=== PATIENT | male | born 1940 | race Caucasian/White ===

== ENCOUNTER 2022-10-21 15:26 | Inpatient (IN) | payer MEDICARE ==
[~2022-10-21] VITALS: Ht 180.3 cm; Wt 121.3 kg
[2022-10-21] MEDS ORDERED: MEMA10 PO (18:56)
[2022-10-21] MEDS ORDERED: HYDCHL25 PO (18:56)
[2022-10-21] MEDS ORDERED: FENO145 PO (18:56)
[2022-10-21] MEDS ORDERED: DONEPEZIL HCL10 MG PO (18:57)
[2022-10-21] MEDS ORDERED: LISI20 PO (18:57)
[2022-10-21 20:00] LABS: Prostate Specific Antigen 0.043 ng/mL (0.000-4.000)
[2022-10-21 20:38] VITALS: BP 152/68
--- NOTE | 2022-10-21 21:00 | NUR ---
ARRIVAL TO [facility] PT ARRIVED TO PCU AT APPROXIMATELY 2039. PT SBA TRANSFER FROM ER [facility] TO HOSPITAL BED. SON AT BEDSIDE. PT A&O TO SELF, PERSON, AND PLACE, THOUGH DOES NOT REMEMBER WHY HE IS HERE OR WHY HE HAS TO STAFF. 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 SpO2> 92% 2L VIA NC, DENIES SOB. ORIENTED PT TO CALL LIGHT/UNIT TO THIS RN's BEST ABLITIY, BED IN LOWEST POSITION AND BED ALARM ON.
[2022-10-21 23:57] VITALS: BP 155/72
[2022-10-22 03:26] VITALS: BP 120/94
[2022-10-22 04:17] LABS: BASOPHILS ABSOLUTE AUTO 0.06 K/mm3 (0.00-0.23); BASOPHILS PERCENT AUTO 1 % (0-2); EOSINOPHILS ABSOLUTE AUTO 0.22 K/mm3 (0.00-0.68); EOSINOPHILS PERCENT AUTO 2 % (0-6); Hematocrit 34.3 % (37.0-53.0); Hemoglobin 11.5 g/dL (13.5-17.5); IMMATURE GRAN ABSOLUTE AUTO 0.06 K/mm3 (0.00-0.10); IMMATURE GRAN PERCENT AUTO 1 % (0-1); LYMPHOCYTES ABSOLUTE AUTO 1.19 K/mm3 (0.84-5.20); LYMPHOCYTES PERCENT AUTO 9 % (21-46); MONOCYTES ABSOLUTE AUTO 1.24 K/mm3 (0.16-1.47); MONOCYTES PERCENT AUTO 10 % (4-13); Mean Corpuscular HGB 31.3 pg (26.0-34.0); Mean Corpuscular HGB Conc 33.5 g/dL (31.5-36.5); Mean Corpuscular Volume 93 fL (80-100); Mean Platelet Volume 10.3 fL (9.1-12.4); NEUTROPHILS ABSOLUTE AUTO 10.23 K/mm3 (1.96-9.15); NEUTROPHILS PERCENT AUTO 79 % (41-73); Platelet Count 221 K/mm3 (150-400); RDW Coefficient Variation 12.8 % (11.7-14.2); RDW Standard Deviation 44.1 fL (35.1-46.3); Red Blood Cell Count 3.68 M/mm3 (4.30-5.90)
[2022-10-22 04:51] LABS: Bun/Creatinine Ratio 17.6 (12.0-20.0); Calcium, Blood 8.8 mg/dL (8.5-10.1); Creatinine, Blood 1.02 mg/dL (0.60-1.20); Potassium, Blood 3.4 mmol/L (3.5-5.5)
--- NOTE | 2022-10-22 04:58 | NUR ---
SHIFT SUMMARY SEE PREVIOUS NOTE. A&O TO SELF, PERSON, AND PLACE, THOUGH DOES NOT REMEMBER WHY HE IS HERE OR WHY HE HAS TO STAFF. 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 SpO2> 92% 2L O2 AT REST, 4L O2 WITH ACTIVITY. PT REPORTS MILD SOB WITH ACTIVITY. PT CONTINENT OF URINE, SBA TO [facility] D/T LINES, NO BM THIS SHIFT. NO OTHER EVENTS, WILL REPORT TO ONCOMING RN.
[2022-10-22 07:43] VITALS: BP 143/72
--- NOTE | 2022-10-22 10:22 | NUR ---
ASSUMED CARE OF PT AT 0700. PT AWAKE, ALERT AND PLEASANTLY CONFUSED. SAGAR COMPLETED THIS AM. DR CONROY CHANGED PT STATUS TO MED NO TELE, REPORT CALLED TO STUART MARTÍNEZ. PT TO BE TRANSFERRED TO ROOM 330 WITH ALL BELONGINGS. FAMILY AT BEDSIDE NOTIFIED OF TRANSFER.
[2022-10-22 10:39] VITALS: BP 148/82
[2022-10-22 14:41] VITALS: BP 139/77
--- NOTE | 2022-10-22 15:43 | NUR ---
SHIFT SUMMARY Patient transferred from PCU. AOx1-2, pleasant & directable. Bed alarm activated and audible for safety. Does not call for assistance. 2lpm O2 to maintain sats, vitals stable. Plan is to remain in hospital over night, expected discharge tomorrow. Will continue plan of care.
--- NOTE | 2022-10-22 17:41 | NUR ---
PATIENT UP TO RESTROOM AND HAD A SMALL AMOUNT OF RECTAL BLEEDING. DR CONROY NOTIFIED AND XARELTO DISCONTINUED. CBC ORDERED AND INSTRUCTED TO CALL IF BLEEDING DOESN'T STOP.
[2022-10-22 17:59] LABS: BASOPHILS ABSOLUTE AUTO 0.05 K/mm3 (0.00-0.23); BASOPHILS PERCENT AUTO 0 % (0-2); EOSINOPHILS ABSOLUTE AUTO 0.17 K/mm3 (0.00-0.68); EOSINOPHILS PERCENT AUTO 1 % (0-6); Hemoglobin 12.8 g/dL (13.5-17.5); IMMATURE GRAN ABSOLUTE AUTO 0.05 K/mm3 (0.00-0.10); IMMATURE GRAN PERCENT AUTO 0 % (0-1); LYMPHOCYTES ABSOLUTE AUTO 1.45 K/mm3 (0.84-5.20); LYMPHOCYTES PERCENT AUTO 10 % (21-46); MONOCYTES ABSOLUTE AUTO 1.17 K/mm3 (0.16-1.47); MONOCYTES PERCENT AUTO 8 % (4-13); Mean Corpuscular HGB 31.7 pg (26.0-34.0); Mean Corpuscular HGB Conc 33.7 g/dL (31.5-36.5); Mean Corpuscular Volume 94 fL (80-100); Mean Platelet Volume 10.1 fL (9.1-12.4); NEUTROPHILS ABSOLUTE AUTO 12.13 K/mm3 (1.96-9.15); NEUTROPHILS PERCENT AUTO 81 % (41-73); Platelet Count 269 K/mm3 (150-400); RDW Coefficient Variation 12.7 % (11.7-14.2); RDW Standard Deviation 43.8 fL (35.1-46.3); Red Blood Cell Count 4.04 M/mm3 (4.30-5.90); White Blood Cell Count 15.02 K/mm3 (4.00-11.30)
[2022-10-22 19:10] VITALS: BP 145/72
--- NOTE | 2022-10-22 22:54 | NUR ---
MULTIPLE ATTEMPTS TO GET OOB, ON MECHANICAL OBS. CALL LIGHT IN REACH. DOES NOT REDIRECT WELL. CALL PLACED TO MD CAST SHELL GRINDER. SLEEP MED ORDERED. SEE MAR FOR DETAILS
--- NOTE | 2022-10-22 23:51 | NUR ---
START OF SHIFT THIS STUDENT NURSE ASSUMED CARE OF PT AT 1900 UNDER THE OBSERVATION OF PAOLA CONTRERAS. DAYSHIFT NURSE VERBALIZED RECTAL BLEEDING AND RECOMMENDED HOLDING XAERELTO FOR EVENING DOSE PER DR REQUEST. MARTELL. PT ORIENTED TO SELF. PT WBC ELEVATED AT 15.02, CHARGE NURSE KELSEY ALERTED. NO TEMP, NO S/S OF INFECTION. PT LEFT IN POSITION OF COMFORT AND SAFETY WITH BED LOCKED AND IN LOW POSITION, THREE BED RAILS RAISED, NONSKID SOCKS IN PLACE, BED ALARM ENABLED, CALL LIGHT WITHIN REACH, AND CONTINUOUS EXTERNAL CAMERA MONITORING.
[2022-10-23 04:22] VITALS: BP 147/74
--- NOTE | 2022-10-23 04:24 | NUR ---
SHIFT SUMMARY PT CONFUSED, ORIENTED TO SELF. TRIES TO EXIT BED CLAIMING HE NEEDS TO FIND HIS OR HIS CHILDREN. ABLE TO BE REDIRECTED BY STAFF. TRAZODONE ADMINISTERED TO ASSIST WITH SLEEP. INTERVENTION WAS NOT SUCCESSFUL. PT RESTLESS THROUGH SHIFT. VSS, BP ELEVATED WITHOUT SYMPTOMS. PT'S PE ADDRESSED THROUGH FALL PREVENTION MEASURES, XARELTO HELD PER DR VERBALIZATION DUE TO RECTAL BLEEDING. PT REMAINS IN A POSITION OF SAFETY WITH 3 BED RAILS RAISED, BED LOCKED AND IN LOW POSITION, CALL LIGHT WITHIN REACH, ROOM FREE OF DEBRIS, BED ALARM ACTIVATED, AND CAMERA MONITORING IN ROOM.
--- NOTE | 2022-10-23 05:22 | NUR ---
I HAVE OBSERVED/ASSISTED STUDENT NURSE AND HAVE READ HER CHARTING. I ALIDA WITH THE ABOVE
[2022-10-23 07:23] VITALS: BP 134/71
[2022-10-23 08:05] LABS: Hematocrit 36.1 % (37.0-53.0); Hemoglobin 12.4 g/dL (13.5-17.5)
[2022-10-23 08:24] LABS: Bun/Creatinine Ratio 22.6 (12.0-20.0); Calcium, Blood 9.5 mg/dL (8.5-10.1); Creatinine, Blood 1.06 mg/dL (0.60-1.20); Potassium, Blood 3.8 mmol/L (3.5-5.5)
[2022-10-23 14:47] VITALS: BP 112/50
--- NOTE | 2022-10-23 17:08 | NUR ---
SHIFT SUMMARY: PT CONFUSED AND ALERT TO SELF AND FAMILY. BED AND CHAIR ALARM IN PLACE. PT IMPULSIVE AND FREQUENTLY OUT OF BED OR CHAIR. PT REPORTS NOT KNOWING WHERE HE IS GOING OR TRYING TO ACCOMPLISH, REDIRECTABLE TO BED OR CHAIR. PT UTILIZING SUPPLEMENTAL OXYGEN AT 4L/MIN VIA NC. PT TOOK ALL SCHEDULE MEDICATION WITHOUT DIFFICULTY. SON(S) AT BEDSIDE IN THE MORNING HOURS. XARALTO ADMINISTERED, NO REPORTS OF RECTAL BLEEDING.
--- NOTE | 2022-10-23 17:25 | NUR ---
NURSE NOTE THIS RN HAS READ AND AGREED WITH NURSING STUDENTS ASSESSMENT AND SHIFT SUMMARY AND CHARTING.
[2022-10-23 18:13] VITALS: BP 131/66
[2022-10-23 20:29] VITALS: BP 121/74
--- NOTE | 2022-10-23 22:54 | NUR ---
START OF SHIFT THIS STUDENT NURSE ASSUMED CARE OF PT AT 1900 UNDER THE OBSERVATION OF NURSE PAOLA CONTRERAS. PT FAMILY IN ROOM. PT RESTING IN BED. VSS. PT ORIENTED TO SELF AND PERSON. HS MEDICATION ADMINISTERED. PT LEFT IN A POSITION OF SAFETY AND COMFORT WITH BED LOCKED AND IN LOW POSITION, ROOM FREE OF DEBRIS, BED ALARM ENABLED, TWO BED RAILS UP, AND CALL LIGHT WITHIN REACH.
[2022-10-24 03:56] VITALS: BP 125/70
--- NOTE | 2022-10-24 04:39 | NUR ---
SHIFT SUMMARY PT RESTED THROUGH THE NIGHT. PT HAD EXTRA LARGE BM AT AROUND 0420, NO SIGNS OF BLOODY STOOLS. IV PATENT. VSS. PT ORIENTED TO SELF AND SURROUNDINGS. PT PLEASANTLY CONFUSED. PT SAT IN LOW 80S PRIOR TO WAKING DUE TO BREATHING FROM MOUTH, RETURNED TO NORMAL LIMITS AFTER WAKING UP. PT REMAINS IN A POSITION OF COMFORT AND SAFETY.
--- NOTE | 2022-10-24 05:15 | NUR ---
I HAVE OSERVED STUDENT NURSE ASSESSMENTS/CARE AND HER DOCUENTATION OF SUCH. I AGREE WITH THE ABOVE
[2022-10-24 07:16] VITALS: BP 140/71
[2022-10-24] MEDS ORDERED: XARELTO20 MG PO ×2 (14:30→14:31)
--- NOTE | 2022-10-24 16:08 | NUR ---
NOTES/DISCHARGE SUMMARY: PATIENT ALERT AND ORIENTED TO SELF, PLACE AND PERSON. CONFUSED AT TIMES. PLEASANT AND COOPERATIVE c CARE. DENIES CP/PRESSURE, SOB AND GENERALIZED PAIN. ON TELE, SR/ST HR RANGES IN THE 90'S-130'S c BBB AND OCCASIONAL PVC PER GENETICS PHYSICIAN. PATIENT ON O2 2L VIA NC c SPO2 ABOVE 90%. PATIENT HAD HOME O2 EVAL. RT RECOMMENDED 3L OF O2 VIA NC c ACTIVITIES. PATIENT AMBULATES TO BATHROOM AND BACK IN BED c SBA. EATING AND DRINKING WELL. RECEIVED SCHEDULED MEDS PER EMAR. VITAL SIGNS REVIEWED. PIV TO RAC DC'D. PORTABLE O2 DELIVERED IN ROOM BY [facility] . PATIENT DISCHARGE HOME. DISCHARGE INSTRUCTION PACKET GIVEN TO PATIENT. EDUCATE PATIENT AND SPOUSE REGARDING ADMITTING DX, S/S, TX, HOME O2 AND NEW PRESCRIBED MEDICATION. PATIENT AND SPOUSE STATED UNDERSTANDING AND NO FURTHER QUESTION AT THIS TIME. RX WAS FAXED TO SPOUSE AND PATIENT PREFERRED PHARMACY ([facility]). ALL PATIENT PERSONAL BELONGINGS WERE SENT HOME c THE PATIENT. PATIENT LEFT THE ROOM AT AROUND 1530. PATIENT TRANSPORTED VIA WHEELCHAIR BY BUSINESS DEVELOPMENT ENGINEER STAFF, AGUSTIN MCKEON TO PATIENT ENTRANCE.
== END 2022-10-24 15:27 | disposition home or self-care (01) | DRG 175 ==
LOC: ER 15:26 → ERHOLD 19:53 → PCU 19:53 → MEDS 10-22 10:29 → ENPENDDIS 10-24 11:07 → MEDS 10-24 15:27
PROVIDERS: Internal Medicine; Nurse Practitioner Acute Care; ADMIT Student in an Organized Health Care Education/Training Program
DX: I26.99 Other pulmonary embolism without acute cor pulmonale (principal); J96.01 Acute respiratory failure with hypoxia; K62.5 Hemorrhage of anus and rectum; J44.9 Chronic obstructive pulmonary disease, unspecified; G30.9 Alzheimer's disease, unspecified; F02.80 Dementia in other diseases classified elsewhere, unspecified severity, without behavioral disturbance, psychotic disturbance, mood disturbance, and anxiety; I10 Essential (primary) hypertension; K64.9 Unspecified hemorrhoids; I27.20 Pulmonary hypertension, unspecified; Z98.890 Other specified postprocedural states; Z79.811 Long term (current) use of aromatase inhibitors; Z79.899 Other long term (current) drug therapy; Z85.46 Personal history of malignant neoplasm of prostate; Z79.01 Long term (current) use of anticoagulants; Z85.828 Personal history of other malignant neoplasm of skin; Z87.891 Personal history of nicotine dependence
CPT/HCPCS: 36415; 80048; 84153; 85014; 85018; 85025; 93005; 93010; 93306; 93970; 96372; 99285-25; A9270; J1650

== ENCOUNTER → 2022-10-21 | Outpatient (CLI) | payer MEDICARE ==
[~2022-10-21] MED LIST: DONEPEZIL HCL10 MG PO; FENO145 PO; HYDCHL25 PO; LISI20 PO; MEMA10 PO; XARELTO20 MG PO
[2022-10-21 12:27] LABS: BASOPHILS ABSOLUTE AUTO 0.05 K/mm3 (0.00-0.23); BASOPHILS PERCENT AUTO 0 % (0-2); EOSINOPHILS ABSOLUTE AUTO 0.24 K/mm3 (0.00-0.68); EOSINOPHILS PERCENT AUTO 2 % (0-6); Hematocrit 37.3 % (37.0-53.0); Hemoglobin 12.9 g/dL (13.5-17.5); IMMATURE GRAN ABSOLUTE AUTO 0.06 K/mm3 (0.00-0.10); IMMATURE GRAN PERCENT AUTO 0 % (0-1); LYMPHOCYTES ABSOLUTE AUTO 1.15 K/mm3 (0.84-5.20); LYMPHOCYTES PERCENT AUTO 9 % (21-46); MONOCYTES ABSOLUTE AUTO 1.15 K/mm3 (0.16-1.47); MONOCYTES PERCENT AUTO 9 % (4-13); Mean Corpuscular HGB 32.2 pg (26.0-34.0); Mean Corpuscular HGB Conc 34.6 g/dL (31.5-36.5); Mean Corpuscular Volume 93 fL (80-100); Mean Platelet Volume 9.7 fL (9.1-12.4); NEUTROPHILS ABSOLUTE AUTO 10.71 K/mm3 (1.96-9.15); NEUTROPHILS PERCENT AUTO 80 % (41-73); Platelet Count 239 K/mm3 (150-400); RDW Coefficient Variation 12.8 % (11.7-14.2); RDW Standard Deviation 43.7 fL (35.1-46.3); Red Blood Cell Count 4.01 M/mm3 (4.30-5.90); White Blood Cell Count 13.36 K/mm3 (4.00-11.30)
[2022-10-21 12:40] LABS: Albumin, Blood 3.9 g/dL (3.4-5.0); Bilirubin, Total 0.6 mg/dL (0.1-1.0); Bun/Creatinine Ratio 16.1 (12.0-20.0); Calcium, Blood 9.7 mg/dL (8.5-10.1); Creatinine, Blood 1.12 mg/dL (0.60-1.20); Globulin, Blood 3.8 g/dL (2.2-4.0); Potassium, Blood 3.7 mmol/L (3.5-5.5); Total Protein, Blood 7.7 g/dL (6.4-8.2)
== END | disposition home or self-care (01) ==
LOC: LAB SHORT 12:23 → LAB 12:23
PROVIDERS: Chiropractor
DX: R07.89 Other chest pain (principal)
CPT/HCPCS: 80053; 84484; 85025; 85379